=== PATIENT | male | born 1980 | race Hispanic/Latino ===

== ENCOUNTER → 2025-01-09 | Day surgery (SDC) | payer BC ==
[~2025-01-09] MED LIST: CENTRUM ADULTS1 EACH PO; CLONAZEPAM1 MG PO; COQ-10100 MG PO; CRANBERRY 12,61 EACH PO; FENTANYL CITRATE/PF 100MCG/2 ML INJ ONE; GARLIC1000 MG PO; GLUCAGON FOR INJ 1 MG VIAL ONE; HYOSCYAMINE SULFATE 0.5 MG/ML INJ ONE; LEVOTHYROXINE50 MCG PO; LIDOCAINE HCL 2% LOCAL INJ 5 ML SDV VIAL INJ ONE; MIDAZOLAM HCL 2 MG/2 ML VIAL ONE; NEURONTIN400 MG PO; OSTEO BI-FLEX1 EAC2 PO; PAXIL40 MG PO; PRAVASTATIN SOD20 MG PO; PROPOFOL IV EMULSION 10 MG/ML 20 ML VIAL ONE; QUVIVIQ25 MG PO; SAW PALMETTO 1160 MG PO; VIT D2-K1 20-1259 ML PO; [UNRECOGNIZED DRUG - OTHER] PO
[2025-01-09] MEDS: LACTATED RINGER'S 1,000 ML ONE (06:34)
[2025-01-09 08:45] VITALS: TEMP 97.4
[2025-01-09 09:05] VITALS: BP 136/90; PULSE 92; RESP 18; O2SAT 98
== END | disposition home or self-care (01) ==
LOC: OR 05:20
PROVIDERS: ATTEND Internal Medicine Gastroenterology
DX: Z12.11 Encounter for screening for malignant neoplasm of colon (principal); D12.2 Benign neoplasm of ascending colon; D12.4 Benign neoplasm of descending colon; K64.8 Other hemorrhoids; I10 Essential (primary) hypertension; E78.5 Hyperlipidemia, unspecified; E03.9 Hypothyroidism, unspecified; F41.9 Anxiety disorder, unspecified; F32.A Depression, unspecified; Z79.899 Other long term (current) drug therapy; Z80.0 Family history of malignant neoplasm of digestive organs
CPT/HCPCS: 45385; J1610; J1980; J2003; J2250; J2704; J3010; J7121; 45378